=== PATIENT | female | born 1970 | race Asian ===

== ENCOUNTER 2021-07-30 14:27 | Day surgery (SDC) | payer OTHER ==
[2021-07-30 14:41] VITALS: BMI 27.6
[2021-07-30] MEDS ORDERED: SODIUM CHLORIDE 0.9% 500 ML INFUS.BAG IV ONE (15:55)
[2021-07-30] MEDS ORDERED: KETOROLAC TROMETHAMINE 30 MG/1 ML VIAL IVPUSH ONE (16:09)
[2021-07-30] MEDS ORDERED: KETOROLAC TROMETHAMINE 30 MG/1 ML VIAL ONE (16:35)
[2021-07-30 16:45] LABS: HEMATOCRIT 21.2 % (32.4-45.2); MCH 28.8 pg (25.7-33.7); MCHC 31.9 g/dl (32.0-36.0); MEAN CELL VOLUME 90.5 fl (80-96); MEAN PLT VOLUME 10.4 fl (7.5-11.1); PLATELET COUNT 112 10^3/uL (134-434); RBC 2.34 M/mm3 (3.60-5.2); RDW 15.5 % (11.6-15.6); WHITE BLOOD COUNT 20.1 K/mm3 (4.0-10.0)
[2021-07-30 16:54] LABS: CHLORIDE 108 mmol/L (98-107); SODIUM 140 mmol/L (136-145)
[2021-07-30 16:55] LABS: HEMOGLOBIN 6.8 GM/dL (10.7-15.3)
[2021-07-30 16:56] LABS: CALCIUM 8.6 mg/dL (8.5-10.1)
[2021-07-30 16:57] LABS: ALBUMIN 3.2 g/dl (3.4-5.0); ANION GAP 9 MMOL/L (8-16); CO2 24 mmol/L (21-32); GLUCOSE,RANDOM 192 mg/dL (74-106)
[2021-07-30 17:00] LABS: CREATININE 0.6 mg/dL (0.55-1.3); SGOT/AST 19 U/L (15-37); SGPT/ALT 14 U/L (13-61)
[2021-07-30 17:02] LABS: BILIRUBIN,TOTAL 0.1 mg/dL (0.2-1); TOT PROT 6.3 g/dl (6.4-8.2)
[2021-07-30 17:03] LABS: ALK PHOS 58 U/L (45-117)
[2021-07-30 17:06] LABS: EPI CELLS 17 /uL (0-25.1); HYALINE CASTS 0 /uL (0-3.1); URINE APPEARANCE CLEAR; URINE BACTERIA 409 /uL (0-1359); URINE BILIRUBIN NEGATIVE (NEGATIVE); URINE COLOR YELLOW; URINE GLUCOSE (UA) NEGATIVE (NEGATIVE); URINE KETONE NEGATIVE (NEGATIVE); URINE LEUK ESTERASE TRACE (NEGATIVE); URINE NITRITE NEGATIVE (NEGATIVE); URINE PROTEIN TRACE (NEGATIVE); URINE RBC 85 /uL (0-23.9); URINE UROBILINOGEN 0.2 mg/dL (0.2-1.0); URINE WBC 36 /uL (0-25.8)
[2021-07-30 17:09] LABS: BLOOD UREA NITROGEN 2.5 mg/dL (7-18)
[2021-07-30 17:34] LABS: ANISOCYTOSIS 2+; MACROCYTOSIS 2+
[2021-07-30] MEDS ORDERED: LORATADINE 10 MG TABLET PO PRN (21:54)
[2021-07-30] MEDS: INSULIN SLIDING SCALE (NOVOLOG) 1 VIAL SQ SCH (23:53)
[2021-07-30 23:54] LABS: INR 1.03 (0.83-1.09); PROTHROMBIN TIME (PATIENT) 11.9 SEC (9.7-13.0)
[2021-07-30 23:57] LABS: ACTIVATED PTT 26.1 SECONDS (25.2-36.5)
[2021-07-31] MEDS: CEFOXITIN SODIUM 1 GM in DEXTROSE 5%-WATER 100 ML IVPB SCH ×4 (02:24→20:22)
[2021-07-31 03:29] LABS: EPI CELLS 5 /uL (0-25.1); HYALINE CASTS 0 /uL (0-3.1); URINE APPEARANCE CLEAR; URINE BACTERIA 58 /uL (0-1359); URINE BILIRUBIN NEGATIVE (NEGATIVE); URINE COLOR ORANGE; URINE GLUCOSE (UA) NEGATIVE (NEGATIVE); URINE KETONE NEGATIVE (NEGATIVE); URINE LEUK ESTERASE TRACE (NEGATIVE); URINE NITRITE NEGATIVE (NEGATIVE); URINE PROTEIN NEGATIVE (NEGATIVE); URINE RBC 3287 /uL (0-23.9); URINE UROBILINOGEN 0.2 mg/dL (0.2-1.0); URINE WBC 20 /uL (0-25.8)
[2021-07-31 07:19] LABS: HEMATOCRIT 30.5 % (32.4-45.2); HEMOGLOBIN 10.2 GM/dL (10.7-15.3); MCH 29.4 pg (25.7-33.7); MCHC 33.4 g/dl (32.0-36.0); MEAN PLT VOLUME 9.5 fl (7.5-11.1); PLATELET COUNT 115 10^3/uL (134-434); RBC 3.47 M/mm3 (3.60-5.2); RDW 15.4 % (11.6-15.6); WHITE BLOOD COUNT 17.3 K/mm3 (4.0-10.0)
[2021-07-31 07:57] LABS: CALCIUM 8.6 mg/dL (8.5-10.1)
[2021-07-31 07:58] LABS: ALBUMIN 3.4 g/dl (3.4-5.0); MAGNESIUM 2.3 mg/dL (1.8-2.4)
[2021-07-31 08:01] LABS: CREATININE 0.6 mg/dL (0.55-1.3); PHOSPHOROUS 3.3 mg/dL (2.5-4.9)
[2021-07-31 08:02] LABS: TOT PROT 6.6 g/dl (6.4-8.2)
[2021-07-31 08:03] LABS: BILIRUBIN,TOTAL 0.7 mg/dL (0.2-1)
[2021-07-31] MEDS: TRIAMCINOLONE ACET 0.1% CREAM 15 GM TUBE TP SCH ×4 (08:34→21:37)
[2021-07-31] MEDS: INSULIN SLIDING SCALE (NOVOLOG) 1 VIAL SQ SCH ×4 (08:34→21:38)
[2021-07-31 08:44] LABS: INR 0.92 (0.83-1.09); PROTHROMBIN TIME (PATIENT) 10.6 SEC (9.7-13.0)
[2021-07-31] MEDS ORDERED: ACETAMINOPHEN 500 MG TABLET (FP) PO PRN (09:44)
[2021-07-31] MEDS ORDERED: LOSARTAN POTASSIUM 50 MG TABLET ONE (09:56)
[2021-07-31] MEDS: LOSARTAN POTASSIUM 50 MG TABLET PO SCH (10:00)
[2021-07-31] MEDS ORDERED: LOSARTAN POTASSIUM 50 MG TABLET PO SCH (10:45)
[2021-07-31] MEDS ORDERED: PROPOFOL 20 ML ONE ×2 (11:10)
[2021-07-31] MEDS ORDERED: MIDAZOLAM HCL 2 MG/2 ML SINGLE DOSE VIAL ONE ×2 (11:10)
[2021-07-31] MEDS ORDERED: CEFOXITIN SODIUM 1 GM in DEXTROSE 5%-WATER - 100 ML IVPB SCH (11:30)
[2021-07-31] MEDS ORDERED: ceFAZolin SODIUM 1 GM VIAL IVPB ONE (11:45)
[2021-07-31] MEDS ORDERED: DEXAMETHASONE SOD PHOSPHATE 4 MG/1 ML VIAL ONE (11:50)
[2021-07-31] MEDS ORDERED: ceFAZolin SODIUM 1 GM VIAL ONE (11:50)
[2021-07-31] MEDS ORDERED: PHENYLEPHRINE HCL 10 MG/1 ML SINGLE DOSE VIAL ONE (11:50)
[2021-07-31] MEDS ORDERED: KETOROLAC TROMETHAMINE 30 MG/1 ML VIAL ONE (11:50)
[2021-07-31] MEDS ORDERED: ONDANSETRON 4 MG/2 ML VIAL IVPUSH PRN (12:20)
[2021-07-31] MEDS ORDERED: ACETAMINOPHEN 1000 MG/100 ML BAG IVPB PRN (12:21)
[2021-07-31] MEDS ORDERED: CYANOCOBALAMIN (VITAMIN B-12) 1000 MCG/1 ML VIAL IM ONE (14:15)
[2021-07-31] MEDS: LACTATED RINGERS SOLUTION 1,000 ML IV SCH (17:01)
[2021-08-01] MEDS: LACTATED RINGERS SOLUTION 1,000 ML IV SCH (04:09)
[2021-08-01] MEDS: INSULIN SLIDING SCALE (NOVOLOG) 1 VIAL SQ SCH ×2 (06:19→12:30)
[2021-08-01] MEDS: TRIAMCINOLONE ACET 0.1% CREAM 15 GM TUBE TP SCH (06:19)
[2021-08-01] MEDS: CEFOXITIN SODIUM 1 GM in DEXTROSE 5%-WATER - 100 ML IVPB SCH ×2 (08:00→08:11)
[2021-08-01 09:18] VITALS: BP 126/91; PULSE 90; TEMP 98.2
[2021-08-01] MEDS ORDERED: MULTIVITAMINS (DAILY MVI) TABLET (FP) PO SCH (10:00)
[2021-08-01 10:41] LABS: BASO % 0.2 % (0-2.0); HEMATOCRIT 29.1 % (32.4-45.2); HEMOGLOBIN 9.5 GM/dL (10.7-15.3); MCHC 32.8 g/dl (32.0-36.0); MEAN CELL VOLUME 88.5 fl (80-96); MEAN PLT VOLUME 9.2 fl (7.5-11.1); MONO % 3.6 % (3.8-10.2); NEUT % 89.2 % (42.8-82.8); PLATELET COUNT 157 10^3/uL (134-434); RBC 3.29 M/mm3 (3.60-5.2); RDW 15.3 % (11.6-15.6); WHITE BLOOD COUNT 28.7 K/mm3 (4.0-10.0)
[2021-08-01 11:05] LABS: CALCIUM 8.9 mg/dL (8.5-10.1)
[2021-08-01 11:06] LABS: ALBUMIN 3.1 g/dl (3.4-5.0); BLOOD UREA NITROGEN 8.1 mg/dL (7-18); MAGNESIUM 2.3 mg/dL (1.8-2.4)
[2021-08-01 11:09] LABS: BILIRUBIN,TOTAL 0.6 mg/dL (0.2-1); CREATININE 0.8 mg/dL (0.55-1.3)
[2021-08-01 11:12] LABS: PHOSPHOROUS 3.7 mg/dL (2.5-4.9)
[2021-08-01 11:13] LABS: TOT PROT 6.1 g/dl (6.4-8.2)
[2021-08-01] MEDS: LOSARTAN POTASSIUM 50 MG TABLET PO SCH (11:30)
[2021-08-01 12:29] LABS: ANISOCYTOSIS 0; MACROCYTOSIS 0
== END 2021-08-01 14:32 | disposition home or self-care (01) ==
LOC: JER 14:27 → JASUSAT 20:58 → UNDOADMIN 20:58 → JERBED 20:58 → UNDOADMIN 07-31 16:12 → J8W 07-31 16:12 → JASUSAT 08-01 14:32
PROVIDERS: ATTEND Internal Medicine
PROC: 0UDB7ZZ Extraction of Endometrium, Via Natural or Artificial Opening (ICD-10-PCS; principal; 2021-07-30)
PROC: 0UJD8ZZ Inspection of Uterus and Cervix, Via Natural or Artificial Opening Endoscopic (ICD-10-PCS; 2021-07-30)
DX: N92.1 Excessive and frequent menstruation with irregular cycle (principal)
CPT/HCPCS: 0241U-QW; 36415; 36430; 71046-TC-FY; 74176-TC; 80053; 81003; 82607; 82728; 82746; 82962; 83036; 83540; 83550; 83735; 84100; 84703; 85025; 85610; 85730; 86850; 86900; 86901; 86922; 87086; 88305-TC; 93005; 93010; 94760; P9058